=== PATIENT | female | born 1965 | race African-American/Black ===

== ENCOUNTER 2017-11-01 16:57 | Emergency (ER) | payer OTHER ==
--- NOTE | 2017-11-01 17:12 | PDOC ---
Attending Attestation - Resident Resident Name: Hi Mathew - HPI HPI: 11/01/17 18:41 Pt presents to the ED complaining of shortness of breath and diffuse frontal headache, along with runny nose and sore throat that have been present for the last two days. Patient was seen at [facility] for these complaints, treated with nebs and steroids and discharged home, but presents today because she still feels short of breath. States that this feels like her asthma. Extensive past medical history as described in resident note, notable for PE/ DVT and anneurysm. Denies fevers but complains of cough that is occasionally productive of white sputum. - Physicial Exam PE: 11/01/17 18:46 Agree with resident exam. PAteint is alert and in mild respiratory distress. Good air entry b/l with wheezes. Speaking in 3-4 word sentences. No LE tenderness or edema. - Medical Decision Making 11/01/17 18:48 Pt presents to the ED complaining of shortness of breath and wheezing consistent with prior asthma attacks. Symptoms are much more consistent with asthma exacerbation than PE, but given her history, PE remains on the differential, as does ACS. EKG shows no signs of ischemia. Will check labs and treat with nebs and steroids, reassess. Will do CT angio if d dimer is positive.
--- NOTE | 2017-11-01 17:58 | PDOC ---
History of Present Illness <ManuelIlana andrade - Last Filed: 11/01/17 21:35> - History of Present Illness Initial Comments: 11/01/17 18:52 Pt is a 52 y/o lady with an extensive past medical history of Pulmonary embolism , DVT, LLE, COPD, Asthma, CHF, HLD, HTN, Anxiety, DM, Myocardial infarction, Brain Aneurysm, and obstructive sleep apnea. Pt presents this evening to [facility] c/o shortness of breath, lightheadedness, and headache. Pt endorses she was recently discharged from [facility] last night for the same symptoms where she was treated with nebulizer and corticosteroids. Pt states she woke up this am with shortness of breath and lightheaded. Also endorses severe headache 10/10 in severity and sharp in nature. Pt states that her headache is new and has not experienced this type of pain before. Endorses she is on anticoagulant(Xarelto) since her DVT and pulmonary embolism approximately 3 years ago. All-Lisinopril PSurgHx- Hysterectomy, right breast lumpectomy, Arthroscopy Rt Knee Social Hx- Former smoker(1/2 pack/day 20 years, quit), social drinker <Erica Garcia - Last Filed: 11/02/17 00:09> - General Chief Complaint: Shortness of Breath Stated Complaint: CHEST PAIN Time Seen by Provider: 11/01/17 17:07 NIH Stroke Scale - Last Known Well Date/Time & Onset Date Last Known Well: 11/01/17 Time Last Known Well: 17:00 - Initial Evaluation Level of consciousness: Alert Ask patient the month and their age: Answers both correctly Ask patient to open & close eyes; make fist and let go: Obeys both correctly Best gaze (horizontal eye movement): Normal Visual field testing: No visual field loss Facial paresis (Show teeth/raise eyebrows/close eyes tight): Normal symmetrical movement Motor Function: Left Arm: Normal Motor Function: Right Arm: Normal (extends arm 90 (or 45) degrees for 10 seconds without drift Motor Function: Left Leg: Normal (extends leg 30 degrees for 5 seconds without drift) Motor Function: Right Leg: Normal (extends leg 30 degrees for 5 seconds without drift) Limb Ataxia: No ataxia Sensory(Use pinprick test arms,legs,trunk,face/side to side): Normal Best language (Describe picture, name items, read sentences): No Aphasia Dysarthria (read several words): Normal articulation Extinction and Inattention: No abnormality - Total Score NIH Stroke Scale Score: 0 <QuincyErica olivas - Last Filed: 11/02/17 00:09> Past History <Ilana Reyes - Last Filed: 11/01/17 21:35> - Past Medical History Asthma: Yes COPD: Yes Hypercholesterolemia: Yes Seizures: Yes Other medical history: SLEEP APNEA, - Suicide/Smoking/Psychosocial Hx Smoking History: Former smoker Have you smoked in the past 12 months: Yes If you are a former smoker, when did you quit?: 3 MONTHS AGO Information on smoking cessation initiated: No Hx Alcohol Use: No Drug/Substance Use Hx: No <QuincyErica - Last Filed: 11/02/17 00:09> - Past Medical History Allergies/Adverse Reactions: Allergies Allergy/AdvReac Type Severity Reaction Status Date / Time lisinopril Allergy Severe Swelling Verified 11/01/17 17:20 Home Medications: Ambulatory Orders Docusate Sodium [Stool Softener] 300 mg PO DAILY 11/01/17 Escitalopram Oxalate [Lexapro -] 10 mg PO DAILY 11/01/17 Furosemide 40 mg PO BID 11/01/17 Gabapentin 300 mg PO BID 11/01/17 Hydralazine HCl 25 mg PO TID 11/01/17 Hydrochlorothiazide 25 mg PO DAILY 11/01/17 Isosorbide Dinitrate [Isordil -] 10 mg PO TID 11/01/17 Levetiracetam [Levetiracetam ER] 750 mg PO BID 11/01/17 Metoprolol Tartrate 100 mg PO BID 11/01/17 Montelukast Na [Singulair -] 10 mg PO HS 11/01/17 Multivit/Iron/FA/K/Herb No.244 [Alive Women's Energy Mv Tablet] 1 each PO DAILY 11/01/17 Rivaroxaban [Xarelto -] 20 mg PO DAILY 11/01/17 Simvastatin 20 mg PO HS 11/01/17 Tramadol HCl 50 mg PO Q6H PRN 11/01/17 Review of Systems - Review of Systems Able to Perform ROS?: Yes Is the patient limited Telugu proficient: No Respiratory: Yes: Orthopnea, Shortness of Breath, SOB with Exertion, SOB at Rest Cardiac (ROS): Yes: See HPI, Chest Tightness Neurological: Yes: Headache <Erica Garcia - Last Filed: 11/02/17 00:09> *Physical Exam - Vital Signs Last Vital Signs Temp Pulse Resp BP Pulse Ox 98.6 F 78 26 H 142/66 97 11/01/17 17:15 11/01/17 20:56 11/01/17 20:56 11/01/17 20:56 11/01/17 20:56 <Ilana Reyes - Last Filed: 11/01/17 21:35> - Vital Signs Last Vital Signs Temp Pulse Resp BP Pulse Ox 98.6 F 93 H 32 H 191/113 94 L 11/01/17 17:15 11/01/17 17:15 11/01/17 17:15 11/01/17 17:15 11/01/17 17:15 - Physical Exam Comments: 11/01/17 20:43 GEN- AD, AAOx3 HEENT- NC/AT RS- CTA B/L, No Wheezing appreciated CVS- RRR No MRG S1 S2 ABD- NT ND No HSM EXT No CCE <Erica Garcia - Last Filed: 11/02/17 00:09> ED Treatment Course - LABORATORY CBC & Chemistry Diagram: 11/01/17 18:15 11/01/17 18:15 - ADDITIONAL ORDERS Additional order review: Laboratory Results 11/01/17 11/01/17 11/01/17 18:15 18:15 18:13 D-Dimer 233 Sodium 141 Potassium 4.1 Chloride 103 Carbon Dioxide 26 Anion Gap 12 BUN 12 Creatinine 0.8 Creat Clearance w eGFR > 60 Random Glucose 299 H Calcium 9.2 Total Bilirubin 0.7 AST 10 L ALT 22 Alkaline Phosphatase 118 H Creatine Kinase 71 Troponin I < 0.02 Total Protein 7.2 Albumin 3.4 11/01/17 18:15 RBC 5.35 H MCV 79.5 L MCHC 33.0 RDW 16.4 H MPV 9.8 Neutrophils % 72.8 Lymphocytes % 20.0 Monocytes % 6.0 Eosinophils % 0.1 Basophils % 1.1 - Medications Given in the ED: ED Medications Discontinued Medications Generic Name Dose Route Start Last Admin Trade Name Freq PRN Reason Stop Dose Admin Acetaminophen 1,000 mg 11/01/17 18:34 11/01/17 18:53 Ofirmev Injection - IVPB 11/01/17 18:35 1,000 mg ONCE ONE Administration Albuterol/Ipratropium 1 amp 11/01/17 18:06 11/01/17 18:32 Duoneb - NEB 11/01/17 18:07 1 amp ONCE ONE Administration Ketorolac Tromethamine 15 mg 11/01/17 19:56 11/01/17 20:17 Toradol Injection - IM 11/01/17 19:57 15 mg ONCE ONE Administration Methylprednisolone Sodium Succinate 125 mg 11/01/17 18:07 11/01/17 18:33 Solu-Medrol - IVPUSH 11/01/17 18:08 125 mg ONCE ONE Administration <Ilana Reyes - Last Filed: 11/01/17 21:35> - LABORATORY CBC & Chemistry Diagram: 11/01/17 18:15 11/01/17 18:15 - RADIOLOGY Radiology Studies Ordered: 11/01/17 21:12 [id number] CT/HEAD CT WITHOUT CONTRAST Cranial CT without contrast Clinical information given worst headache of life, history of darby aneurysm Multiplanar imaging was performed. Intravenous contrast was not administered. No prior imaging studies are available at this facility for direct comparison. An approximately 0.5 cm moderately hyperdense focus is seen projecting over the subarachnoid space ventral to the basis pontis in a slightly right paramedian position. On the basis of this exam it is uncertain with this focus represents a small subarachnoid blood clot versus focal artifact. Given this possible finding and the provided clinical history CSF analysis is suggested. The remainder of the exam appears unremarkable. Impression: As noted above. Reported By: Ritchie Campbell MD 11/01/172019 ERICA GARCIA Technologist: Godfrey Wood Transcribed Date/Time: 11/01/172019 Motorman/Woman: Ritchie Campbell Printed Date/Time: 11/01/172019 By: BAYRON ARIZA 1 <Erica Garcia - Last Filed: 11/02/17 00:09> Medical Decision Making - Medical Decision Making 11/01/17 21:[address] Allen Abraham, patient's neurosurgeon, awaiting call back. <Ilana Reyes - Last Filed: 11/01/17 21:35> - Medical Decision Making 11/01/17 20:[address] performed, awating official read D-Dimer negative 11/01/17 22:[address] Abraham, recommends pt be transferred to [facility] for possible coiling or clipping of aneurysm. 11/01/17 22:53 Spoke with Neurosurgery at [facility], Dr Holley's service will accept patient. Informed to begin Nicardapine drip and 1,[address] MG Kepp[address] with Dr Elise at [facility], aware of patient and expecting arrival. <Erica Garcia - Last Filed: 11/02/17 00:09> *DC/Admit/Observation/Transfer - Attestations Scribe Attestion: 11/01/17 21:36 Documentation prepared by Ilana Reyes, acting as medical supervisor for Emmy Evans MD. <Ilana Reyes - Last Filed: 11/01/17 21:35> <Erica Garcia - Last Filed: 11/02/17 00:09> Diagnosis at time of Disposition: Cerebral aneurysm, Bronchospasm - Discharge Dispostion Disposition: TRANSFER ACUTE CARE/OTHER HOSP - Referrals Referrals: ON STAFF,NOT [Primary Care Provider] -
[2017-11-01] MEDS ORDERED: ALBUTEROL SO4 2.5/IPRATROPIUM 0.5 INH SOL 3 ML VIAL.NEB. NEB ONE ×2 (18:06→18:25)
[2017-11-01] MEDS ORDERED: methylPREDNISolone NA SUCC 125 MG/2 ML VIAL IVPUSH ONE (18:07)
[2017-11-01 18:19] VITALS: BMI 55.3
[2017-11-01 18:25] LABS: BASO % 1.1 % (0-2.0); EOS % 0.1 % (0-4.5); HEMATOCRIT 42.5 % (32.4-45.2); MCH 26.2 pg (25.7-33.7); MEAN CELL VOLUME 79.5 fl (80-96); MEAN PLT VOLUME 9.8 fl (7.5-11.1); NEUT % 72.8 % (42.8-82.8); PLATELET COUNT 237 K/MM3 (134-434); RBC 5.35 M/mm3 (3.60-5.2); RDW 16.4 % (11.6-15.6); WHITE BLOOD COUNT 8.4 K/mm3 (4.0-10.0)
[2017-11-01] MEDS ORDERED: methylPREDNISolone NA SUCC 125 MG/2 ML VIAL ONE (18:25)
[2017-11-01] MEDS ORDERED: ACETAMINOPHEN 1000 MG/100 ML VIAL (NON FORMULARY) IVPB ONE (18:34)
[2017-11-01] MEDS ORDERED: ACETAMINOPHEN INJECTION 100 ML IVPB ONE (18:46)
[2017-11-01 18:52] LABS: ALBUMIN 3.4 g/dl (3.4-5.0); ANION GAP 12 MMOL/L (8-16); BILIRUBIN,TOTAL 0.7 mg/dL (0.2-1); BLOOD UREA NITROGEN 12 mg/dL (7-18); CALCIUM 9.2 mg/dL (8.5-10.1); CHLORIDE 103 mmol/L (98-107); CO2 26 mmol/L (21-32); CREATININE 0.8 mg/dL (0.55-1.3); GLUCOSE,RANDOM 299 mg/dL (74-106); POTASSIUM 4.1 mmol/L (3.5-5.1); SGOT/AST 10 U/L (15-37); SGPT/ALT 22 U/L (13-61); SODIUM 141 mmol/L (136-145); TOT PROT 7.2 g/dl (6.4-8.2)
[2017-11-01 18:53] LABS: ALK PHOS 118 U/L (45-117)
[2017-11-01] MEDS ORDERED: KETOROLAC TROMETHAMINE 15 MG/ML VIAL IM ONE (19:56)
[2017-11-01] MEDS ORDERED: KETOROLAC TROMETHAMINE 15 MG/ML VIAL ONE (20:13)
[2017-11-01] MEDS ORDERED: METOCLOPRAMIDE HCL INJECTION 10 MG/2 ML VIAL IVPUSH ONE (21:32)
[2017-11-01] MEDS ORDERED: morphine CARPU-JECT 4 MG/1 ML DISP.SYRIN IVPUSH ONE (21:33)
[2017-11-01] MEDS ORDERED: METOCLOPRAMIDE HCL INJECTION 10 MG/2 ML VIAL ONE (22:01)
[2017-11-01] MEDS ORDERED: morphine SULFATE 4 MG/ML VIAL ONE (22:02)
[2017-11-01] MEDS ORDERED: levETIRAcetam 500 MG/5 ML INJECTION VIAL IVPB ONE ×2 (22:22→22:55)
[2017-11-01] MEDS ORDERED: NICARDIPINE 25 MG in DEXTROSE 5%-WATER - 240 ML IVPB SCH (22:30)
--- NOTE | 2017-11-01 22:32 | PDOC ---
*Physical Exam - Vital Signs Last Vital Signs Temp Pulse Resp BP Pulse Ox 98.6 F 78 26 H 142/66 97 11/01/17 17:15 11/01/17 20:56 11/01/17 20:56 11/01/17 20:56 11/01/17 20:56 - Physical Exam General Appearance: Yes: Nourished HEENT: positive: MARCI Neck: positive: Trachea midline Respiratory/Chest: positive: Lungs Clear, Normal Breath Sounds Cardiovascular: positive: Regular Rhythm, Regular Rate, S1, S2 Gastrointestinal/Abdominal: positive: Normal Bowel Sounds, Soft. negative: Tender Musculoskeletal: positive: Normal Inspection Extremity: positive: Normal Capillary Refill Neurologic: positive: chief engineering division II-XII NML intact, Fully Oriented, Alert, Normal Mood/ Affect, Motor Strength 06/19 ED Treatment Course - LABORATORY CBC & Chemistry Diagram: 11/01/17 18:15 11/01/17 18:15 - ADDITIONAL ORDERS Additional order review: Laboratory Results 11/01/17 11/01/17 11/01/17 18:15 18:15 18:13 D-Dimer 233 Sodium 141 Potassium 4.1 Chloride 103 Carbon Dioxide 26 Anion Gap 12 BUN 12 Creatinine 0.8 Creat Clearance w eGFR > 60 Random Glucose 299 H Calcium 9.2 Total Bilirubin 0.7 AST 10 L ALT 22 Alkaline Phosphatase 118 H Creatine Kinase 71 Troponin I < 0.02 Total Protein 7.2 Albumin 3.4 11/01/17 18:15 RBC 5.35 H MCV 79.5 L MCHC 33.0 RDW 16.4 H MPV 9.8 Neutrophils % 72.8 Lymphocytes % 20.0 Monocytes % 6.0 Eosinophils % 0.1 Basophils % 1.1 - Medications Given in the ED: ED Medications Discontinued Medications Generic Name Dose Route Start Last Admin Trade Name Freq PRN Reason Stop Dose Admin Acetaminophen 1,000 mg 11/01/17 18:34 11/01/17 18:53 Ofirmev Injection - IVPB 11/01/17 18:35 1,000 mg ONCE ONE Administration Albuterol/Ipratropium 1 amp 11/01/17 18:06 11/01/17 18:32 Duoneb - NEB 11/01/17 18:07 1 amp ONCE ONE Administration Ketorolac Tromethamine 15 mg 11/01/17 19:56 11/01/17 20:17 Toradol Injection - IM 11/01/17 19:57 15 mg ONCE ONE Administration Methylprednisolone Sodium Succinate 125 mg 11/01/17 18:07 11/01/17 18:33 Solu-Medrol - IVPUSH 11/01/17 18:08 125 mg ONCE ONE Administration Metoclopramide HCl 10 mg 11/01/17 21:32 11/01/17 22:11 Reglan Injection - IVPUSH 11/01/17 21:33 10 mg ONCE ONE Administration Morphine Sulfate 4 mg 11/01/17 21:33 11/01/17 22:11 Morphine Injection - IVPUSH 11/01/17 21:34 4 mg ONCE ONE Administration Medical Decision Making - Medical Decision Making 11/01/17 22:28 assumed care of pt from DR Contreras at 7 pm. pt with h/o obesity prior PE, HTN copd/ asthma, here with sob. was seen and discharged from another hospital last night, pt also c/o worst headache of her life. on assuming her care. labs and ct head pending. ct head resulted with possible thrombus in the anuerysm. pt d dimer normal. resp status improved with nebs. d/w forward air controller/air officer jocelinesurgermaykel bingham, who reviewed the ct head, concerns for possible rupture, recommend transfer to [facility]. d/w transfer center and stacy forward air controller/air officer there, Dr. Holley ( who is familiar with patient ) who will take pt. ct a ordered prior to d/w otilia on hold as may need to perform contrast study there. pt will go to ED accepted by DR Stuart ed physician at [facility]. *DC/Admit/Observation/Transfer Diagnosis at time of Disposition: Cerebral aneurysm, Bronchospasm - Discharge Dispostion Disposition: TRANSFER ACUTE CARE/OTHER HOSP - Referrals Referrals: ON STAFF,NOT [Primary Care Provider] - - Patient Instructions - Post Discharge Activity
[2017-11-01] MEDS ORDERED: niCARdipine HCL 25 MG/10 ML AMPUL IVPB ONE (22:54)
[2017-11-01 23:26] VITALS: BP 164/73; PULSE 84; TEMP 98.9
--- NOTE | 2017-11-02 16:44 | EKG ---
Test Reason : Blood Pressure : / mmHG Vent. Rate : 087 BPM Atrial Rate : 087 BPM P-R Int : 180 ms QRS Dur : 084 ms QT Int : 396 ms P-R-T Axes : 040 -32 109 degrees QTc Int : 476 ms NORMAL SINUS RHYTHM LEFT AXIS DEVIATION LEFT VENTRICULAR HYPERTROPHY WITH REPOLARIZATION ABNORMALITY ABNORMAL ECG NO PREVIOUS ECGS AVAILABLE Confirmed by Bakari Art ([id number]) on 11/02/2017 4:43:47 PM Referred By: Confirmed By:Bakari Art
== END 2017-11-01 23:39 | disposition short-term general hospital (02) ==
LOC: JER 16:57
PROC: 3E0F7GC Introduction of Other Therapeutic Substance into Respiratory Tract, Via Natural or Artificial Opening (ICD-10-PCS; principal; 2017-11-01)
PROC: 3E0233Z Introduction of Anti-inflammatory into Muscle, Percutaneous Approach (ICD-10-PCS; 2017-11-01)
PROC: 3E033GC Introduction of Other Therapeutic Substance into Peripheral Vein, Percutaneous Approach (ICD-10-PCS; 2017-11-01)
PROC: 3E033NZ Introduction of Analgesics, Hypnotics, Sedatives into Peripheral Vein, Percutaneous Approach (ICD-10-PCS; 2017-11-01)
DX: I67.1 Cerebral aneurysm, nonruptured (principal); J98.01 Acute bronchospasm; J45.909 Unspecified asthma, uncomplicated; E78.00 Pure hypercholesterolemia, unspecified; R56.9 Unspecified convulsions; G47.30 Sleep apnea, unspecified
CPT/HCPCS: 36415; 70450-TC; 71045-TC-FY; 80053; 82550; 84484; 85025; 85379; 93005; 93010; 94640; 96372; 96374; 96375; 99285-25; J0131; J7620

== ENCOUNTER 2017-12-14 10:12 | Day surgery (SDC) | payer OTHER ==
[2017-12-14 11:32] VITALS: BMI 54.0
[2017-12-14] MEDS ORDERED: TETRACAINE/BENZOCAINE/BUTAMBEN 20 GM SPR TP ONE (12:15)
[2017-12-14] MEDS ORDERED: MIDAZOLAM HCL 2 MG/2 ML SINGLE DOSE VIAL ONE (12:16)
[2017-12-14] MEDS ORDERED: LIDOCAINE VISCOUS 2% ORAL/TOP 20 ML UNIT-DOSE CUP ONE (12:18)
[2017-12-14 13:01] VITALS: TEMP 98
[2017-12-14 14:36] VITALS: BP 150/84; PULSE 65
--- NOTE | 2017-12-15 15:57 | PATH ---
Surgical Pathology Report Patient [facility]: [facility]. Rec. #: [id number] /Age/Gender: 1965 (Age: 52) / F Account: [id number] Location: [facility]-ENDOSCOPY Taken: 12/14/2017 Received: 12/14/2017 Reported: 12/15/2017 Physicians: Deandre Staples M.D. Specimen(s) Received BX ANTRUM Clinical History Acid reflux Postoperative diagnosis: Normal EGD Final Diagnosis STOMACH, ANTRUM, BIOPSY: GASTRIC ANTRAL MUCOSA WITH MILD CHRONIC GASTRITIS. IMMUNOHISTOCHEMICAL STAIN FOR H. PYLORI IS NEGATIVE. Electronically Signed Yasmin Johnson M.D. Gross Description Received in formalin, labeled "biopsy antrum" are 2 [place], irregular portions of soft tissue measuring 0.3 and 0.6 cm. in greatest dimension. The specimens are submitted in toto in one cassette. /12/14/2017 saudi12/14/2017
== END 2017-12-14 14:48 | disposition home or self-care (01) ==
LOC: JASU-SURG 10:12 → JASU-ENDO 10:12
PROVIDERS: ATTEND Internal Medicine Gastroenterology
PROC: 0DB68ZX Excision of Stomach, Via Natural or Artificial Opening Endoscopic, Diagnostic (ICD-10-PCS; principal; 2017-12-14 11:15)
DX: Z01.818 Encounter for other preprocedural examination (principal); E66.01 Morbid (severe) obesity due to excess calories; I10 Essential (primary) hypertension; G47.30 Sleep apnea, unspecified; J44.9 Chronic obstructive pulmonary disease, unspecified
CPT/HCPCS: 82962; 88305-TC; 88342-TC

== ENCOUNTER 2020-09-13 12:25 | Inpatient (IN) | payer OTHER ==
[2020-09-13 15:06] LABS: VENOUS BASE EXCESS 9.1 mmol/L (-2-2); VENOUS PCO2 59.4 mmHg (38-52); VENOUS PH 7.386 (7.310-7.410)
[2020-09-13 15:07] LABS: BASO % 0.2 % (0-2.0); EOS % 0.1 % (0-4.5); HEMATOCRIT 14.6 % (32.4-45.2); LYMPH % 14.5 % (8-40); MCH 25.6 pg (25.7-33.7); MCHC 32.5 g/dl (32.0-36.0); MEAN CELL VOLUME 78.9 fl (80-96); MEAN PLT VOLUME 7.5 fl (7.5-11.1); MONO % 11.4 % (3.8-10.2); NEUT % 73.8 % (42.8-82.8); PLATELET COUNT 320 10^3/uL (134-434); RBC 1.85 M/mm3 (3.60-5.2); RDW 17.6 % (11.6-15.6); WHITE BLOOD COUNT 14.8 K/mm3 (4.0-10.0)
[2020-09-13 15:10] LABS: HEMOGLOBIN 4.8 GM/dL (10.7-15.3)
[2020-09-13 15:16] LABS: CHLORIDE 97 mmol/L (98-107); SODIUM 139 mmol/L (136-145)
[2020-09-13 15:19] LABS: ALBUMIN 3.1 g/dl (3.4-5.0); BLOOD UREA NITROGEN 29.3 mg/dL (7-18); CALCIUM 8.1 mg/dL (8.5-10.1); GLUCOSE,RANDOM 294 mg/dL (74-106)
[2020-09-13 15:20] LABS: CO2 33 mmol/L (21-32)
[2020-09-13 15:22] LABS: CREATININE 1.2 mg/dL (0.55-1.3); SGOT/AST 7 U/L (15-37); SGPT/ALT 16 U/L (13-61)
[2020-09-13 15:24] LABS: BILIRUBIN,TOTAL 0.4 mg/dL (0.2-1); TOT PROT 6.1 g/dl (6.4-8.2)
[2020-09-13 15:25] LABS: ALK PHOS 90 U/L (45-117)
[2020-09-13 15:44] LABS: ANION GAP 8 MMOL/L (8-16)
[2020-09-13] MEDS ORDERED: PANTOPRAZOLE SODIUM 80 MG in SODIUM CHLORIDE 100 ML IVPB ONE (16:08)
[2020-09-13] MEDS ORDERED: KCL 10 MEQ IVPB 10 MEQ/100 ML INFUS.BAG IVPB ONE ×2 (16:19→17:30)
[2020-09-13] MEDS ORDERED: PANTOPRAZOLE SODIUM 80 MG/200 ML BAG IVPB ONE (16:19)
[2020-09-13] MEDS: KCL 10 MEQ IVPB 10 MEQ/100 ML INFUS.BAG IVPB SCH ×3 (16:38→18:59)
[2020-09-13] MEDS ORDERED: POTASSIUM CHLORIDE TABS 20 MEQ TABLET.ER (FP) PO ONE ×2 (16:40→18:37)
[2020-09-13] MEDS ORDERED: PANTOPRAZOLE SODIUM 80 MG in SODIUM CHLORIDE 100 ML IVPB SCH (18:15)
[2020-09-13] MEDS ORDERED: PANTOPRAZOLE SODIUM 40 MG VIAL ONE (18:37)
[2020-09-13] MEDS: PANTOPRAZOLE SODIUM 160 MG in SODIUM CHLORIDE 290 ML IVPB SCH (18:59)
[2020-09-13] MEDS ORDERED: MAGNESIUM SULF 50% (8.12 MEQ/2 ML-1 GM VIAL) IVPB ONE (19:21)
[2020-09-13] MEDS ORDERED: MAGNESIUM SULF 50% (8.12 MEQ/2 ML-1 GM VIAL) ONE (19:43)
[2020-09-13] MEDS ORDERED: ACETAMINOPHEN 1000 MG/100 ML VIAL (NON FORMULARY) IVPB ONE (22:17)
[2020-09-13] MEDS ORDERED: ACETAMINOPHEN INJECTION 100 ML IVPB ONE (22:55)
[2020-09-14 09:28] LABS: IRON SERUM 53 ug/dL (50-175); TOTAL IRON BINDING CAPACITY 324 ug/dL (250-450)
[2020-09-14] MEDS: POTASSIUM CHLORIDE TABS 20 MEQ TABLET.ER (FP) PO SCH (11:53)
[2020-09-14] MEDS: ALBUTEROL SO4 2.5/IPRATROPIUM 0.5 INH SOL 3 ML VIAL.NEB. NEB SCH ×2 (13:23→19:49)
[2020-09-14 13:36] LABS: BASO % 0.5 % (0-2.0); EOS % 1.3 % (0-4.5); HEMOGLOBIN 7.4 GM/dL (10.7-15.3); LYMPH % 13.6 % (8-40); MCH 26.9 pg (25.7-33.7); MCHC 33.7 g/dl (32.0-36.0); MEAN CELL VOLUME 79.8 fl (80-96); MEAN PLT VOLUME 8.4 fl (7.5-11.1); MONO % 5.5 % (3.8-10.2); NEUT % 79.1 % (42.8-82.8); PLATELET COUNT 296 10^3/uL (134-434); RBC 2.76 M/mm3 (3.60-5.2); RDW 16.3 % (11.6-15.6); WHITE BLOOD COUNT 13.7 K/mm3 (4.0-10.0)
[2020-09-14 13:39] LABS: CHLORIDE 102 mmol/L (98-107); SODIUM 144 mmol/L (136-145)
[2020-09-14 13:41] LABS: CALCIUM 7.9 mg/dL (8.5-10.1)
[2020-09-14 13:42] LABS: ALBUMIN 3.1 g/dl (3.4-5.0); BLOOD UREA NITROGEN 19.9 mg/dL (7-18); CO2 36 mmol/L (21-32); GLUCOSE,RANDOM 243 mg/dL (74-106); MAGNESIUM 2.1 mg/dL (1.8-2.4)
[2020-09-14 13:45] LABS: CREATININE 0.9 mg/dL (0.55-1.3); SGOT/AST 10 U/L (15-37); SGPT/ALT 16 U/L (13-61)
[2020-09-14 13:46] LABS: BILIRUBIN,TOTAL 0.5 mg/dL (0.2-1)
[2020-09-14 13:48] LABS: ALK PHOS 95 U/L (45-117)
[2020-09-14 14:09] LABS: ANION GAP 6 MMOL/L (8-16)
[2020-09-14] MEDS ORDERED: POTASSIUM CHLORIDE TABS 20 MEQ TABLET.ER (FP) PO ONE (15:15)
[2020-09-14] MEDS: FLUTICASONE/SALMETEROL 100 MCG/50 MCG DISKUS IH SCH ×2 (15:18→21:38)
[2020-09-14] MEDS: PANTOPRAZOLE SODIUM 160 MG in SODIUM CHLORIDE 290 ML IVPB SCH (15:18)
[2020-09-14] MEDS: KCL 10 MEQ IVPB 10 MEQ/100 ML INFUS.BAG IVPB SCH ×2 (15:22→16:18)
[2020-09-14] MEDS ORDERED: PT OWN MED DRAWER 7, Y5N ONE (18:30)
[2020-09-14] MEDS: ACETAMINOPHEN 1000 MG/100 ML VIAL (NON FORMULARY) IVPB PRN (19:46)
[2020-09-14] MEDS: MONTELUKAST NA 10 MG TABLET PO SCH (21:35)
[2020-09-14] MEDS: POLYETHYLENE GLYCOL (HEALTHYLAX) 3350 17 GM PACKET PO SCH (21:36)
[2020-09-15] MEDS: ACETAMINOPHEN 1000 MG/100 ML VIAL (NON FORMULARY) IVPB PRN ×3 (01:58→21:45)
[2020-09-15] MEDS: POLYETHYLENE GLYCOL (HEALTHYLAX) 3350 17 GM PACKET PO SCH (05:00)
[2020-09-15 07:47] LABS: BASO % 0.4 % (0-2.0); EOS % 2.1 % (0-4.5); HEMATOCRIT 20.1 % (32.4-45.2); LYMPH % 15.2 % (8-40); MCH 26.7 pg (25.7-33.7); MCHC 33.6 g/dl (32.0-36.0); MEAN CELL VOLUME 79.4 fl (80-96); MEAN PLT VOLUME 8.3 fl (7.5-11.1); MONO % 6.5 % (3.8-10.2); NEUT % 75.8 % (42.8-82.8); PLATELET COUNT 275 10^3/uL (134-434); RBC 2.53 M/mm3 (3.60-5.2); RETICULOCYTES 5.76 % (0.5-1.5); WHITE BLOOD COUNT 12.7 K/mm3 (4.0-10.0)
[2020-09-15] MEDS: ALBUTEROL SO4 2.5/IPRATROPIUM 0.5 INH SOL 3 ML VIAL.NEB. NEB SCH ×3 (07:50→20:55)
[2020-09-15 07:51] LABS: HEMOGLOBIN 6.7 GM/dL (10.7-15.3)
[2020-09-15 07:57] LABS: BLOOD UREA NITROGEN 11.9 mg/dL (7-18); CALCIUM 7.8 mg/dL (8.5-10.1)
[2020-09-15 07:59] LABS: INR 1.24 (0.83-1.09); PROTHROMBIN TIME (PATIENT) 14.9 SEC (9.7-13.0)
[2020-09-15 08:00] LABS: CREATININE 0.8 mg/dL (0.55-1.3)
[2020-09-15 08:31] LABS: MAGNESIUM 2.1 mg/dL (1.8-2.4)
[2020-09-15] MEDS: KCL 10 MEQ IVPB 10 MEQ/100 ML INFUS.BAG IVPB SCH ×2 (09:53→10:48)
[2020-09-15] MEDS: FLUTICASONE/SALMETEROL 100 MCG/50 MCG DISKUS IH SCH ×2 (09:53→21:03)
[2020-09-15] MEDS: PANTOPRAZOLE SODIUM 160 MG in SODIUM CHLORIDE 290 ML IVPB SCH (09:54)
[2020-09-15] MEDS: POTASSIUM CHLORIDE TABS 20 MEQ TABLET.ER (FP) PO SCH (09:54)
[2020-09-15] MEDS ORDERED: MAGNESIUM HYDROX 2400MG/30ML ORAL SUSPENSION 30 ML CUP PO ONE (11:45)
[2020-09-15] MEDS ORDERED: INSULIN (NOVOLOG) ASPART 100 UNITS/ML 10ML VIAL SQ ONE (19:48)
[2020-09-15] MEDS: MONTELUKAST NA 10 MG TABLET PO SCH (21:02)
[2020-09-16] MEDS ORDERED: PT OWN MED DRAWER 7, Y5N ONE ×2 (05:16→21:39)
[2020-09-16] MEDS: ACETAMINOPHEN 1000 MG/100 ML VIAL (NON FORMULARY) IVPB PRN ×2 (05:42→21:15)
[2020-09-16] MEDS: PANTOPRAZOLE SODIUM 160 MG in SODIUM CHLORIDE 290 ML IVPB SCH (05:48)
[2020-09-16] MEDS: ALBUTEROL SO4 2.5/IPRATROPIUM 0.5 INH SOL 3 ML VIAL.NEB. NEB SCH ×3 (08:25→20:40)
[2020-09-16] MEDS: POLYETHYLENE GLYCOL 3350 119 GM BTL PO SCH (10:45)
[2020-09-16] MEDS: POTASSIUM CHLORIDE TABS 20 MEQ TABLET.ER (FP) PO SCH (10:45)
[2020-09-16] MEDS: FLUTICASONE/SALMETEROL 100 MCG/50 MCG DISKUS IH SCH ×2 (10:48→21:44)
[2020-09-16 11:15] LABS: BASO % 0.4 % (0-2.0); EOS % 3.2 % (0-4.5); HEMATOCRIT 25.3 % (32.4-45.2); HEMOGLOBIN 8.5 GM/dL (10.7-15.3); MCH 27.1 pg (25.7-33.7); MCHC 33.7 g/dl (32.0-36.0); MEAN CELL VOLUME 80.2 fl (80-96); MEAN PLT VOLUME 7.8 fl (7.5-11.1); MONO % 5.1 % (3.8-10.2); NEUT % 82.3 % (42.8-82.8); PLATELET COUNT 280 10^3/uL (134-434); RBC 3.16 M/mm3 (3.60-5.2); RDW 16.5 % (11.6-15.6); WHITE BLOOD COUNT 13.7 K/mm3 (4.0-10.0)
[2020-09-16 11:39] LABS: ALBUMIN 2.9 g/dl (3.4-5.0); MAGNESIUM 2.2 mg/dL (1.8-2.4)
[2020-09-16 11:42] LABS: CREATININE 0.8 mg/dL (0.55-1.3)
[2020-09-16 11:44] LABS: BILIRUBIN,TOTAL 1.6 mg/dL (0.2-1); TOT PROT 5.8 g/dl (6.4-8.2)
[2020-09-16] MEDS ORDERED: IRON SUCROSE INJECTION 200 MG in SODIUM CHLORIDE 90 ML IVPB ONE (15:30)
[2020-09-16] MEDS ORDERED: BISACODYL 5 MG TABLET.DR (FP) PO ONE (16:00)
[2020-09-16] MEDS ORDERED: PEG 3350/NA SULF BICARB CL/KCL 4000 ML SOLN.RECON PO ONE (17:00)
[2020-09-16 20:10] LABS: TRANSGLUTAMINASE IGA < 2 U/mL (0-3); TRANSGLUTAMINASE IGG < 2 U/mL (0-5)
[2020-09-16] MEDS: MONTELUKAST NA 10 MG TABLET PO SCH (21:37)
[2020-09-16] MEDS: VALPROATE SODIUM INJECTION 500 MG in SODIUM CHLORIDE 100 ML IVPB SCH ×2 (21:44→23:29)
[2020-09-16] MEDS ORDERED: VALPROATE SODIUM 500 MG/5 ML VIAL IVPB SCH (22:00)
[2020-09-16] MEDS ORDERED: DIVALPROEX SODIUM 500 MG TABLET E.C. PO ONE (23:17)
[2020-09-17] MEDS ORDERED: MORPHINE SULFATE 2 MG/ML VIAL IM ONE (03:27)
[2020-09-17] MEDS: ALBUTEROL SO4 2.5/IPRATROPIUM 0.5 INH SOL 3 ML VIAL.NEB. NEB SCH ×3 (07:27→20:10)
[2020-09-17 08:48] LABS: EPI CELLS >36 /uL (0-25.1); HYALINE CASTS 14 /uL (0-3.1); PH,URINE 6.5 (5.0-8.0); URINE APPEARANCE CLOUDY; URINE BACTERIA >9,000 /uL (0-1359); URINE BILIRUBIN NEGATIVE (NEGATIVE); URINE COLOR DK YELLOW; URINE GLUCOSE (UA) TRACE (NEGATIVE); URINE KETONE 1+ (NEGATIVE); URINE LEUK ESTERASE TRACE (NEGATIVE); URINE NITRITE NEGATIVE (NEGATIVE); URINE PROTEIN 3+ (NEGATIVE); URINE RBC 68 /uL (0-23.9); URINE WBC 52 /uL (0-25.8)
[2020-09-17] MEDS: FLUTICASONE/SALMETEROL 100 MCG/50 MCG DISKUS IH SCH ×2 (10:19→21:33)
[2020-09-17] MEDS: VALPROATE SODIUM INJECTION 500 MG in SODIUM CHLORIDE 100 ML IVPB SCH (10:21)
[2020-09-17] MEDS: POTASSIUM CHLORIDE TABS 20 MEQ TABLET.ER (FP) PO SCH ×2 (10:22→17:05)
[2020-09-17] MEDS: POLYETHYLENE GLYCOL 3350 119 GM BTL PO SCH (10:22)
[2020-09-17] MEDS ORDERED: PT OWN MED DRAWER 7, Y5N ONE ×2 (14:52→21:22)
[2020-09-17 15:26] LABS: BASO % 0.3 % (0-2.0); EOS % 4.7 % (0-4.5); HEMATOCRIT 25.5 % (32.4-45.2); HEMOGLOBIN 8.5 GM/dL (10.7-15.3); LYMPH % 16.2 % (8-40); MCH 26.5 pg (25.7-33.7); MCHC 33.5 g/dl (32.0-36.0); MEAN CELL VOLUME 79.1 fl (80-96); MEAN PLT VOLUME 7.5 fl (7.5-11.1); MONO % 6.3 % (3.8-10.2); NEUT % 72.5 % (42.8-82.8); PLATELET COUNT 307 10^3/uL (134-434); RBC 3.22 M/mm3 (3.60-5.2); RDW 17.1 % (11.6-15.6); WHITE BLOOD COUNT 10.7 K/mm3 (4.0-10.0)
[2020-09-17] MEDS: DIVALPROEX SODIUM 500 MG TABLET E.C. PO SCH ×2 (15:27→21:30)
[2020-09-17 15:44] LABS: ALBUMIN 2.9 g/dl (3.4-5.0); BLOOD UREA NITROGEN 4.6 mg/dL (7-18); CALCIUM 7.9 mg/dL (8.5-10.1)
[2020-09-17 15:47] LABS: CREATININE 0.8 mg/dL (0.55-1.3)
[2020-09-17 15:49] LABS: BILIRUBIN,TOTAL 1.4 mg/dL (0.2-1); TOT PROT 5.9 g/dl (6.4-8.2)
[2020-09-17] MEDS: MONTELUKAST NA 10 MG TABLET PO SCH (21:30)
[2020-09-17] MEDS ORDERED: MAGNESIUM CITRATE 300 ML BOTTLE PO ONE (22:00)
[2020-09-18] MEDS: ALBUTEROL SO4 2.5/IPRATROPIUM 0.5 INH SOL 3 ML VIAL.NEB. NEB SCH ×3 (07:57→22:50)
[2020-09-18] MEDS ORDERED: PT OWN MED DRAWER 7, Y5N ONE ×3 (09:59→21:40)
[2020-09-18] MEDS ORDERED: IRON SUCROSE INJECTION 200 MG in SODIUM CHLORIDE 90 ML IVPB ONE (10:15)
[2020-09-18] MEDS: POTASSIUM CHLORIDE TABS 20 MEQ TABLET.ER (FP) PO SCH (11:11)
[2020-09-18] MEDS: POLYETHYLENE GLYCOL 3350 119 GM BTL PO SCH (11:12)
[2020-09-18] MEDS: DIVALPROEX SODIUM 500 MG TABLET E.C. PO SCH ×2 (11:12→21:54)
[2020-09-18] MEDS: FLUTICASONE/SALMETEROL 100 MCG/50 MCG DISKUS IH SCH ×2 (11:12→21:54)
[2020-09-18] MEDS ORDERED: MAGNESIUM CITRATE 300 ML BOTTLE PO ONE (18:00)
[2020-09-18] MEDS: MONTELUKAST NA 10 MG TABLET PO SCH (21:54)
[2020-09-19 07:59] LABS: BASO % 0.5 % (0-2.0); EOS % 4.3 % (0-4.5); HEMATOCRIT 25.4 % (32.4-45.2); HEMOGLOBIN 8.5 GM/dL (10.7-15.3); LYMPH % 19.6 % (8-40); MCH 26.8 pg (25.7-33.7); MCHC 33.5 g/dl (32.0-36.0); MEAN PLT VOLUME 7.5 fl (7.5-11.1); MONO % 6.4 % (3.8-10.2); NEUT % 69.2 % (42.8-82.8); PLATELET COUNT 336 10^3/uL (134-434); RBC 3.18 M/mm3 (3.60-5.2); RDW 17.8 % (11.6-15.6)
[2020-09-19] MEDS: ALBUTEROL SO4 2.5/IPRATROPIUM 0.5 INH SOL 3 ML VIAL.NEB. NEB SCH (08:00)
[2020-09-19 08:15] LABS: CHLORIDE 103 mmol/L (98-107); SODIUM 142 mmol/L (136-145)
[2020-09-19 08:21] LABS: INR 1.13 (0.83-1.09); PROTHROMBIN TIME (PATIENT) 13.8 SEC (9.7-13.0)
[2020-09-19 08:23] LABS: CALCIUM 8.2 mg/dL (8.5-10.1)
[2020-09-19 08:24] LABS: ANION GAP 7 MMOL/L (8-16); BLOOD UREA NITROGEN 3.4 mg/dL (7-18); CO2 32 mmol/L (21-32); GLUCOSE,RANDOM 211 mg/dL (74-106)
[2020-09-19 08:27] LABS: CREATININE 0.6 mg/dL (0.55-1.3)
[2020-09-19] MEDS ORDERED: PT OWN MED DRAWER 7, Y5N ONE ×2 (10:02→20:56)
[2020-09-19] MEDS: POTASSIUM CHLORIDE TABS 20 MEQ TABLET.ER (FP) PO SCH (10:35)
[2020-09-19] MEDS: DIVALPROEX SODIUM 500 MG TABLET E.C. PO SCH ×2 (10:35→22:39)
[2020-09-19] MEDS: POLYETHYLENE GLYCOL 3350 119 GM BTL PO SCH (10:36)
[2020-09-19] MEDS: FLUTICASONE/SALMETEROL 100 MCG/50 MCG DISKUS IH SCH ×2 (10:36→22:38)
[2020-09-19] MEDS ORDERED: TRIPLE LUMEN FLUSH 4 ML ML IVPUSH PRN (14:08)
[2020-09-19] MEDS ORDERED: KETAMINE HCL 200 MG/20 ML VIAL ONE (15:14)
[2020-09-19] MEDS ORDERED: MAGNESIUM CITRATE 300 ML BOTTLE PO ONE (18:00)
[2020-09-19] MEDS: amLODIPine BESYLATE 5 MG TABLET (FP) PO SCH (18:10)
[2020-09-19 20:24] LABS: BASO % 0.4 % (0-2.0); EOS % 4.3 % (0-4.5); HEMATOCRIT 24.7 % (32.4-45.2); HEMOGLOBIN 8.4 GM/dL (10.7-15.3); LYMPH % 19.8 % (8-40); MCH 26.8 pg (25.7-33.7); MCHC 33.9 g/dl (32.0-36.0); MEAN PLT VOLUME 7.1 fl (7.5-11.1); MONO % 9.4 % (3.8-10.2); NEUT % 66.1 % (42.8-82.8); PLATELET COUNT 326 10^3/uL (134-434); RBC 3.13 M/mm3 (3.60-5.2); RDW 17.7 % (11.6-15.6); WHITE BLOOD COUNT 7.7 K/mm3 (4.0-10.0)
[2020-09-19] MEDS: MONTELUKAST NA 10 MG TABLET PO SCH (22:41)
[2020-09-19 23:34] VITALS: BMI 60.0
[2020-09-20] MEDS ORDERED: ACETAMINOPHEN 1000 MG/100 ML VIAL (NON FORMULARY) IVPB ONE (00:23)
[2020-09-20] MEDS ORDERED: ACETAMINOPHEN 325 MG TABLET (FP) PO ONE (04:44)
[2020-09-20] MEDS ORDERED: PT OWN MED DRAWER 7, Y5N ONE ×2 (09:27→21:53)
[2020-09-20] MEDS: amLODIPine BESYLATE 5 MG TABLET (FP) PO SCH (09:40)
[2020-09-20] MEDS: DIVALPROEX SODIUM 500 MG TABLET E.C. PO SCH ×2 (09:40→22:37)
[2020-09-20] MEDS: POTASSIUM CHLORIDE TABS 20 MEQ TABLET.ER (FP) PO SCH (09:40)
[2020-09-20] MEDS: FLUTICASONE/SALMETEROL 100 MCG/50 MCG DISKUS IH SCH ×2 (09:43→22:37)
[2020-09-20] MEDS ORDERED: IRON SUCROSE INJECTION 200 MG in SODIUM CHLORIDE 90 ML IVPB ONE (10:05)
[2020-09-20] MEDS: CEPHALEXIN MONOHYDRATE 500 MG CAPSULE (UD) PO SCH ×2 (12:45→22:39)
[2020-09-20] MEDS: HEPARIN NA (PORCINE) 5,000 UNITS/ML 1ML VIAL SQ SCH ×2 (13:20→22:39)
[2020-09-20] MEDS: POLYETHYLENE GLYCOL (HEALTHYLAX) 3350 17 GM PACKET PO SCH (13:20)
[2020-09-20] MEDS: POLYETHYLENE GLYCOL 3350 119 GM BTL PO SCH (13:31)
[2020-09-20 18:52] LABS: EPI CELLS >36 /uL (0-25.1); HYALINE CASTS 3 /uL (0-3.1); PH,URINE 6.5 (5.0-8.0); URINE APPEARANCE CLEAR; URINE BACTERIA 2038 /uL (0-1359); URINE BILIRUBIN NEGATIVE (NEGATIVE); URINE COLOR DK YELLOW; URINE GLUCOSE (UA) NEGATIVE (NEGATIVE); URINE KETONE 1+ (NEGATIVE); URINE LEUK ESTERASE NEGATIVE (NEGATIVE); URINE NITRITE NEGATIVE (NEGATIVE); URINE PROTEIN 1+ (NEGATIVE); URINE RBC 60 /uL (0-23.9); URINE UROBILINOGEN 0.2 mg/dL (0.2-1.0); URINE WBC 20 /uL (0-25.8)
[2020-09-20] MEDS: MONTELUKAST NA 10 MG TABLET PO SCH (22:39)
[2020-09-21] MEDS: HEPARIN NA (PORCINE) 5,000 UNITS/ML 1ML VIAL SQ SCH ×3 (06:53→22:57)
[2020-09-21] MEDS: DIVALPROEX SODIUM 500 MG TABLET E.C. PO SCH ×2 (11:21→22:59)
[2020-09-21] MEDS: amLODIPine BESYLATE 5 MG TABLET (FP) PO SCH (11:22)
[2020-09-21] MEDS: CEPHALEXIN MONOHYDRATE 500 MG CAPSULE (UD) PO SCH ×2 (11:22→22:59)
[2020-09-21] MEDS: POTASSIUM CHLORIDE TABS 20 MEQ TABLET.ER (FP) PO SCH (11:22)
[2020-09-21] MEDS: POLYETHYLENE GLYCOL (HEALTHYLAX) 3350 17 GM PACKET PO SCH (11:22)
[2020-09-21] MEDS: FLUTICASONE/SALMETEROL 100 MCG/50 MCG DISKUS IH SCH ×2 (11:26→22:59)
[2020-09-21] MEDS ORDERED: PT OWN MED DRAWER 7, Y5N ONE (21:10)
[2020-09-21] MEDS: MONTELUKAST NA 10 MG TABLET PO SCH (23:00)
[2020-09-22] MEDS: HEPARIN NA (PORCINE) 5,000 UNITS/ML 1ML VIAL SQ SCH ×3 (06:39→21:16)
[2020-09-22] MEDS ORDERED: PEG 3350/NA SULF BICARB CL/KCL 4000 ML SOLN.RECON PO ONE (09:00)
[2020-09-22] MEDS: CEPHALEXIN MONOHYDRATE 500 MG CAPSULE (UD) PO SCH ×2 (09:12→21:15)
[2020-09-22] MEDS: POLYETHYLENE GLYCOL (HEALTHYLAX) 3350 17 GM PACKET PO SCH (09:12)
[2020-09-22] MEDS: FLUTICASONE/SALMETEROL 100 MCG/50 MCG DISKUS IH SCH ×2 (09:12→21:14)
[2020-09-22] MEDS: POTASSIUM CHLORIDE TABS 20 MEQ TABLET.ER (FP) PO SCH (09:12)
[2020-09-22] MEDS: DIVALPROEX SODIUM 500 MG TABLET E.C. PO SCH ×2 (09:12→21:15)
[2020-09-22] MEDS: amLODIPine BESYLATE 5 MG TABLET (FP) PO SCH (09:13)
[2020-09-22] MEDS ORDERED: PT OWN MED DRAWER 7, Y5N ONE ×2 (10:55→20:57)
[2020-09-22] MEDS ORDERED: BISACODYL 5 MG TABLET.DR (FP) PO ONE (17:00)
[2020-09-22 17:40] LABS: HEMATOCRIT 27.6 % (32.4-45.2); LYMPH % 26.2 % (8-40); MCH 26.4 pg (25.7-33.7); MCHC 32.7 g/dl (32.0-36.0); MEAN CELL VOLUME 80.6 fl (80-96); MEAN PLT VOLUME 6.8 fl (7.5-11.1); MONO % 8.3 % (3.8-10.2); NEUT % 61.5 % (42.8-82.8); PLATELET COUNT 299 10^3/uL (134-434); RBC 3.43 M/mm3 (3.60-5.2); RDW 18.4 % (11.6-15.6); WHITE BLOOD COUNT 7.1 K/mm3 (4.0-10.0)
[2020-09-22 18:00] LABS: CALCIUM 7.9 mg/dL (8.5-10.1)
[2020-09-22 18:01] LABS: ALBUMIN 2.9 g/dl (3.4-5.0); BLOOD UREA NITROGEN 4.4 mg/dL (7-18)
[2020-09-22 18:03] LABS: CREATININE 0.6 mg/dL (0.55-1.3)
[2020-09-22 18:06] LABS: BILIRUBIN,TOTAL 0.4 mg/dL (0.2-1); TOT PROT 5.9 g/dl (6.4-8.2)
[2020-09-22] MEDS: MONTELUKAST NA 10 MG TABLET PO SCH (21:15)
[2020-09-23] MEDS: amLODIPine BESYLATE 5 MG TABLET (FP) PO SCH (12:45)
[2020-09-23] MEDS: CEPHALEXIN MONOHYDRATE 500 MG CAPSULE (UD) PO SCH ×2 (12:45→21:32)
[2020-09-23] MEDS: FLUTICASONE/SALMETEROL 100 MCG/50 MCG DISKUS IH SCH ×2 (12:45→21:31)
[2020-09-23] MEDS: POTASSIUM CHLORIDE TABS 20 MEQ TABLET.ER (FP) PO SCH (12:45)
[2020-09-23] MEDS: HEPARIN NA (PORCINE) 5,000 UNITS/ML 1ML VIAL SQ SCH ×2 (12:45→22:39)
[2020-09-23] MEDS ORDERED: PT OWN MED DRAWER 7, Y5N ONE ×2 (13:21→20:57)
[2020-09-23] MEDS: DIVALPROEX SODIUM 500 MG TABLET E.C. PO SCH ×2 (13:26→21:31)
[2020-09-23] MEDS: POLYETHYLENE GLYCOL (HEALTHYLAX) 3350 17 GM PACKET PO SCH (13:27)
[2020-09-23 13:50] LABS: BASO % 1.1 % (0-2.0); EOS % 2.2 % (0-4.5); HEMATOCRIT 28.9 % (32.4-45.2); HEMOGLOBIN 9.7 GM/dL (10.7-15.3); LYMPH % 22.7 % (8-40); MCH 26.8 pg (25.7-33.7); MCHC 33.6 g/dl (32.0-36.0); MEAN CELL VOLUME 79.7 fl (80-96); MEAN PLT VOLUME 6.8 fl (7.5-11.1); MONO % 8.7 % (3.8-10.2); NEUT % 65.3 % (42.8-82.8); PLATELET COUNT 327 10^3/uL (134-434); RBC 3.63 M/mm3 (3.60-5.2); RDW 18.3 % (11.6-15.6)
[2020-09-23 14:13] LABS: CALCIUM 8.5 mg/dL (8.5-10.1)
[2020-09-23 14:14] LABS: ALBUMIN 3.1 g/dl (3.4-5.0)
[2020-09-23 14:17] LABS: CREATININE 0.6 mg/dL (0.55-1.3)
[2020-09-23 14:20] LABS: BILIRUBIN,TOTAL 0.6 mg/dL (0.2-1); TOT PROT 6.1 g/dl (6.4-8.2)
[2020-09-23 14:24] LABS: BLOOD UREA NITROGEN 3.6 mg/dL (7-18)
[2020-09-23] MEDS ORDERED: IRON SUCROSE INJECTION 200 MG in SODIUM CHLORIDE 90 ML IVPB ONE (16:22)
[2020-09-23] MEDS ORDERED: amLODIPine BESYLATE 5 MG TABLET (FP) PO ONE (17:21)
[2020-09-23] MEDS ORDERED: amLODIPine BESYLATE 5 MG TABLET (FP) PO SCH (17:22)
[2020-09-23] MEDS ORDERED: hydrALAZINE HCL 50 MG TABLET (FP) PO SCH (21:18)
[2020-09-23] MEDS: MONTELUKAST NA 10 MG TABLET PO SCH (21:32)
[2020-09-23] MEDS: hydrALAZINE HCL 50 MG TABLET (FP) PO SCH (21:36)
[2020-09-24] MEDS ORDERED: ACETAMINOPHEN 325 MG TABLET (FP) PO PRN (04:01)
[2020-09-24] MEDS: hydrALAZINE HCL 50 MG TABLET (FP) PO SCH ×2 (05:46→15:26)
[2020-09-24] MEDS: HEPARIN NA (PORCINE) 5,000 UNITS/ML 1ML VIAL SQ SCH ×2 (05:51→15:26)
[2020-09-24] MEDS ORDERED: PT OWN MED DRAWER 7, Y5N ONE (10:00)
[2020-09-24] MEDS: DIVALPROEX SODIUM 500 MG TABLET E.C. PO SCH (10:08)
[2020-09-24] MEDS: FLUTICASONE/SALMETEROL 100 MCG/50 MCG DISKUS IH SCH (10:08)
[2020-09-24] MEDS: POLYETHYLENE GLYCOL (HEALTHYLAX) 3350 17 GM PACKET PO SCH (10:08)
[2020-09-24] MEDS: POTASSIUM CHLORIDE TABS 20 MEQ TABLET.ER (FP) PO SCH (10:08)
[2020-09-24] MEDS: CEPHALEXIN MONOHYDRATE 500 MG CAPSULE (UD) PO SCH (10:08)
[2020-09-24] MEDS ORDERED: INSULIN (LEVEMIR) 100 UNITS/ML UNITS SQ SCH (10:15)
[2020-09-24 15:42] VITALS: PULSE 84
[2020-09-24 18:15] VITALS: BP 156/80; TEMP 98
== END 2020-09-24 18:00 | DRG 377 ==
LOC: JER 12:25 → JERBED 19:00 → J4W 09-14 01:23
PROVIDERS: ADMIT Internal Medicine; ATTEND Family Medicine
PROC: 30233N1 Transfusion of Nonautologous Red Blood Cells into Peripheral Vein, Percutaneous Approach (ICD-10-PCS; 2020-09-13)
PROC: 0DJ08ZZ Inspection of Upper Intestinal Tract, Via Natural or Artificial Opening Endoscopic (ICD-10-PCS; 2020-09-16)
PROC: 0DBK8ZX Excision of Ascending Colon, Via Natural or Artificial Opening Endoscopic, Diagnostic (ICD-10-PCS; principal; 2020-09-23 09:45)
DX: K92.2 Gastrointestinal hemorrhage, unspecified (principal); G93.41 Metabolic encephalopathy; D62 Acute posthemorrhagic anemia; Z68.44 Body mass index [BMI] 60.0-69.9, adult; E87.2 Acidosis; N39.0 Urinary tract infection, site not specified; E11.9 Type 2 diabetes mellitus without complications; J44.9 Chronic obstructive pulmonary disease, unspecified; F41.8 Other specified anxiety disorders; R56.9 Unspecified convulsions; E87.6 Hypokalemia; E66.01 Morbid (severe) obesity due to excess calories; I67.1 Cerebral aneurysm, nonruptured; K64.8 Other hemorrhoids; D64.9 Anemia, unspecified; E78.5 Hyperlipidemia, unspecified; K21.9 Gastro-esophageal reflux disease without esophagitis
CPT/HCPCS: 36415; 36430; 36511; 70450-TC; 71045-TC-FY; 80048; 80053; 81003; 82010; 82272; 82550; 82553; 82570; 82607; 82728; 82747; 82803; 82962; 83036; 83516; 83540; 83550; 83605; 83735; 84436; 84439; 84443; 84484; 85014; 85025; 85045; 85610; 86850; 86900; 86901; 86922; 87040; 87077; 87086; 87186; 88305-TC; 93005; 93010; 93306-TC; 94640; 94660; 99285-25; C9803; J0131; J1644; J1756; P9038; P9058; U0003; U0005

== ENCOUNTER 2022-09-20 20:11 | Inpatient (IN) | payer OTHER ==
[2022-09-20 21:08] LABS: VENOUS BASE EXCESS 3.3 mmol/L (-2-2); VENOUS O2 SATURATION 93.2 % (70-80); VENOUS PCO2 44.9 mmHg (38-52); VENOUS PH 7.418 (7.310-7.410)
[2022-09-20 21:10] LABS: BASO % 1.2 % (0-2.0); EOS % 2.1 % (0-4.5); HEMATOCRIT 38.2 % (32.4-45.2); HEMOGLOBIN 12.9 GM/dL (10.7-15.3); LYMPH % 34.6 % (8-40); MCHC 33.8 g/dl (32.0-36.0); MEAN CELL VOLUME 77.1 fl (80-96); MEAN PLT VOLUME 9.2 fl (7.5-11.1); MONO % 9.4 % (3.8-10.2); NEUT % 52.7 % (42.8-82.8); PLATELET COUNT 244 10^3/uL (134-434); RBC 4.95 M/mm3 (3.60-5.2); RDW 16.3 % (11.6-15.6); WHITE BLOOD COUNT 9.6 K/mm3 (4.0-10.0)
[2022-09-20 21:24] LABS: INR 0.97 (0.83-1.09); PROTHROMBIN TIME (PATIENT) 11.3 SEC (9.7-13.0)
[2022-09-20 21:27] LABS: ACTIVATED PTT 30.7 SECONDS (25.2-36.5)
[2022-09-20 21:52] LABS: CHLORIDE 103 mmol/L (98-107); POTASSIUM 3.7 mmol/L (3.5-5.1); SODIUM 139 mmol/L (136-145)
[2022-09-20 21:53] LABS: ALBUMIN 3.1 g/dl (3.4-5.0); ANION GAP 8 MMOL/L (8-16); CALCIUM 8.5 mg/dL (8.5-10.1); CO2 28 mmol/L (21-32)
[2022-09-20 21:56] LABS: BLOOD UREA NITROGEN 24.3 mg/dL (7-18); SGPT/ALT 21 U/L (13-61)
[2022-09-20 21:57] LABS: CREATININE 1.8 mg/dL (0.55-1.3); SGOT/AST 14 U/L (15-37)
[2022-09-20 21:58] LABS: CHOLESTEROL 188 mg/dL (50-200); TOT PROT 6.1 g/dl (6.4-8.2)
[2022-09-20 22:00] LABS: ALK PHOS 108 U/L (45-117); BILIRUBIN,TOTAL 0.4 mg/dL (0.2-1); LDL CHOLESTEROL (ONLY SJRH) 96 mg/dL (5-100)
[2022-09-20 22:01] LABS: HDL CHOLESTEROL 74 mg/dL (40-60)
[2022-09-20 22:04] LABS: GLUCOSE,RANDOM 401 mg/dL (74-106)
[2022-09-20] MEDS ORDERED: FUROSEMIDE 40 MG/4 ML INJECTABLE VIAL IVPUSH ONE ×2 (22:09→22:11)
[2022-09-20 22:25] LABS: EPI CELLS 20 /uL (0-25.1); HYALINE CASTS 0 /uL (0-3.1); PH,URINE 5.5 (5.0-8.0); URINE APPEARANCE CLEAR; URINE BACTERIA >9,000 /uL (0-1359); URINE BILIRUBIN NEGATIVE (NEGATIVE); URINE COLOR YELLOW; URINE GLUCOSE (UA) 3+ (NEGATIVE); URINE KETONE NEGATIVE (NEGATIVE); URINE LEUK ESTERASE 1+ (NEGATIVE); URINE NITRITE NEGATIVE (NEGATIVE); URINE PROTEIN 3+ (NEGATIVE); URINE RBC 49 /uL (0-23.9); URINE UROBILINOGEN 0.2 mg/dL (0.2-1.0); URINE WBC 205 /uL (0-25.8)
[2022-09-20] MEDS ORDERED: FUROSEMIDE 40 MG/4 ML INJECTABLE VIAL ONE (22:36)
[2022-09-20] MEDS ORDERED: CEFTRIAXONE 1 GM in DEXTROSE 5%-WATER - 100 ML IVPB ONE (22:50)
[2022-09-20] MEDS ORDERED: INSULIN (NOVOLOG) ASPART 100 UNITS/ML 10ML VIAL SQ ONE (23:06)
[2022-09-20] MEDS ORDERED: cefTRIAXone SODIUM 1 GM VIAL ONE (23:11)
[2022-09-20] MEDS ORDERED: DOCUSATE SODIUM 100 MG CAPSULE (FP) PO PRN (23:55)
[2022-09-21] MEDS ORDERED: ACETAMINOPHEN 1000 MG/100 ML BAG IVPB ONE (00:29)
[2022-09-21] MEDS ORDERED: ACETAMINOPHEN INJECTION 100 ML IVPB ONE ×2 (01:01→17:34)
[2022-09-21] MEDS: ACETAMINOPHEN 1000 MG/100 ML BAG IVPB PRN ×2 (06:06→17:38)
[2022-09-21] MEDS ORDERED: ALBUTEROL SO4 0.083% IH SOL 2.5 MG/3 ML VIAL.NEB. NEB PRN (07:55)
[2022-09-21] MEDS ORDERED: SENNOSIDES 8.6MG TABLET (FP) PO PRN (07:55)
[2022-09-21] MEDS ORDERED: RIVAROXABAN 20 MG TABLET PO SCH ×2 (10:00→11:07)
[2022-09-21] MEDS ORDERED: CARVEDILOL 3.125 MG TABLET (FP) ONE ×2 (10:52→21:47)
[2022-09-21] MEDS ORDERED: ASPIRIN COATED 81 MG TABLET.EC ONE (10:52)
[2022-09-21] MEDS ORDERED: NIFEdipine E.R 60 MG TABLET PO ONE (10:53)
[2022-09-21] MEDS ORDERED: NIFEdipine E.R. 30 MG TABLET PO ONE (10:53)
[2022-09-21] MEDS: NIFEdipine E.R. 30 MG TABLET PO SCH (11:01)
[2022-09-21] MEDS: ASPIRIN COATED 81 MG TABLET.EC PO SCH (11:01)
[2022-09-21] MEDS: CARVEDILOL 3.125 MG TABLET (FP) PO SCH ×2 (11:01→21:57)
[2022-09-21] MEDS ORDERED: LORazepam 2 MG/ML SDV VIAL IVPUSH STA (12:50)
[2022-09-21] MEDS: FLUTICASONE/SALMETEROL (WIXELA) 100 MCG/50 MCG DISKUS IH SCH ×2 (13:30→21:57)
[2022-09-21] MEDS ORDERED: HEPARIN NA (PORCINE) 5,000 UNITS/ML 1ML VIAL SQ SCH (14:00)
[2022-09-21] MEDS: INSULIN SLIDING SCALE (NOVOLOG) 1 VIAL SQ SCH ×2 (19:04→22:01)
[2022-09-21] MEDS ORDERED: CEFTRIAXONE 1 GM/50 ML BAG ONE (21:46)
[2022-09-21] MEDS ORDERED: ATORVASTATIN CA 40 MG TABLET (FP) ONE (21:47)
[2022-09-21] MEDS ORDERED: MONTELUKAST NA 10 MG TABLET ONE (21:47)
[2022-09-21] MEDS ORDERED: QUEtiapine FUMARATE 25 MG TABLET ONE (21:47)
[2022-09-21] MEDS: CEFTRIAXONE 1 GM in DEXTROSE 5%-WATER - 50 ML IVPB SCH (21:57)
[2022-09-21] MEDS: ATORVASTATIN CA 40 MG TABLET (FP) PO SCH (21:57)
[2022-09-21] MEDS: QUEtiapine FUMARATE 25 MG TABLET PO SCH (21:57)
[2022-09-21] MEDS: MONTELUKAST NA 10 MG TABLET PO SCH (21:57)
[2022-09-21] MEDS ORDERED: ACETAMINOPHEN 325 MG TABLET (FP) ONE (23:53)
[2022-09-21] MEDS: ACETAMINOPHEN 325 MG TABLET (FP) PO PRN (23:54)
[2022-09-22 01:57] VITALS: BMI 57.3
[2022-09-22] MEDS: INSULIN SLIDING SCALE (NOVOLOG) 1 VIAL SQ SCH ×4 (06:31→22:27)
[2022-09-22 10:22] LABS: HEMATOCRIT 36.6 % (32.4-45.2); HEMOGLOBIN 12.3 GM/dL (10.7-15.3); MCH 25.9 pg (25.7-33.7); MCHC 33.5 g/dl (32.0-36.0); MEAN CELL VOLUME 77.2 fl (80-96); MEAN PLT VOLUME 9.2 fl (7.5-11.1); PLATELET COUNT 213 10^3/uL (134-434); RBC 4.75 M/mm3 (3.60-5.2); RDW 16.8 % (11.6-15.6); WHITE BLOOD COUNT 7.7 K/mm3 (4.0-10.0)
[2022-09-22] MEDS: CARVEDILOL 3.125 MG TABLET (FP) PO SCH ×2 (10:32→22:25)
[2022-09-22] MEDS: ASPIRIN COATED 81 MG TABLET.EC PO SCH (10:32)
[2022-09-22] MEDS: NIFEdipine E.R. 30 MG TABLET PO SCH (10:32)
[2022-09-22] MEDS: FLUTICASONE/SALMETEROL (WIXELA) 100 MCG/50 MCG DISKUS IH SCH ×2 (10:33→22:24)
[2022-09-22] MEDS ORDERED: CEFTRIAXONE 1 GM in DEXTROSE 5%-WATER - 50 ML IVPB ONE (12:00)
[2022-09-22] MEDS: ACETAMINOPHEN 325 MG TABLET (FP) PO PRN (14:19)
[2022-09-22] MEDS: RIVAROXABAN 20 MG TABLET PO SCH (19:00)
[2022-09-22] MEDS ORDERED: VALPROATE SODIUM 500 MG/5 ML VIAL IVPB ONE (21:47)
[2022-09-22] MEDS ORDERED: VALPROATE SODIUM INJECTION 1,000 MG in SODIUM CHLORIDE 100 ML IVPB ONE (22:15)
[2022-09-22] MEDS: CEFTRIAXONE 1 GM in DEXTROSE 5%-WATER - 50 ML IVPB SCH (22:25)
[2022-09-22] MEDS: ATORVASTATIN CA 40 MG TABLET (FP) PO SCH (22:25)
[2022-09-22] MEDS: QUEtiapine FUMARATE 25 MG TABLET PO SCH (22:25)
[2022-09-22] MEDS: MONTELUKAST NA 10 MG TABLET PO SCH (22:26)
[2022-09-22] MEDS: TOPIRAMATE 25 MG TABLET PO SCH (22:29)
[2022-09-23] MEDS: RIVAROXABAN 20 MG TABLET PO SCH ×2 (01:15→17:05)
[2022-09-23] MEDS: INSULIN SLIDING SCALE (NOVOLOG) 1 VIAL SQ SCH ×4 (06:44→21:39)
[2022-09-23] MEDS: ASPIRIN COATED 81 MG TABLET.EC PO SCH (09:05)
[2022-09-23] MEDS: TOPIRAMATE 25 MG TABLET PO SCH ×2 (09:11→21:30)
[2022-09-23] MEDS: NIFEdipine E.R. 30 MG TABLET PO SCH (09:11)
[2022-09-23] MEDS: CARVEDILOL 3.125 MG TABLET (FP) PO SCH (09:11)
[2022-09-23] MEDS: DIVALPROEX NA *ER* EXTEND REL 500 MG TABLET.SA (FP) PO SCH ×2 (09:12→21:29)
[2022-09-23] MEDS: FLUTICASONE/SALMETEROL (WIXELA) 100 MCG/50 MCG DISKUS IH SCH ×2 (09:24→21:29)
[2022-09-23] MEDS: ACETAMINOPHEN 325 MG TABLET (FP) PO PRN ×2 (09:30→21:30)
[2022-09-23 12:08] LABS: POTASSIUM 4.2 mmol/L (3.5-5.1)
[2022-09-23 12:12] LABS: CALCIUM 9.6 mg/dL (8.5-10.1)
[2022-09-23 12:13] LABS: BLOOD UREA NITROGEN 21.8 mg/dL (7-18)
[2022-09-23 12:16] LABS: CREATININE 1.2 mg/dL (0.55-1.3)
[2022-09-23] MEDS ORDERED: INSULIN (NOVOLOG) ASPART 100 UNITS/ML 10ML VIAL ONE (12:33)
[2022-09-23] MEDS: INSULIN (LEVEMIR) 100 UNITS/ML UNITS SQ SCH ×2 (12:35→21:38)
[2022-09-23 13:06] LABS: HEMATOCRIT 38.1 % (32.4-45.2); HEMOGLOBIN 12.3 GM/dL (10.7-15.3); MCH 25.4 pg (25.7-33.7); MCHC 32.3 g/dl (32.0-36.0); MEAN CELL VOLUME 78.8 fl (80-96); MEAN PLT VOLUME 9.6 fl (7.5-11.1); PLATELET COUNT 211 10^3/uL (134-434); RBC 4.84 M/mm3 (3.60-5.2); RDW 17.4 % (11.6-15.6); WHITE BLOOD COUNT 7.4 K/mm3 (4.0-10.0)
[2022-09-23] MEDS: ATORVASTATIN CA 40 MG TABLET (FP) PO SCH (21:29)
[2022-09-23] MEDS: CARVEDILOL 6.25 MG TABLET (FP) PO SCH (21:29)
[2022-09-23] MEDS: CEFTRIAXONE 1 GM in DEXTROSE 5%-WATER - 50 ML IVPB SCH (21:30)
[2022-09-23] MEDS: QUEtiapine FUMARATE 25 MG TABLET PO SCH (21:30)
[2022-09-23] MEDS: MONTELUKAST NA 10 MG TABLET PO SCH (21:30)
[2022-09-24] MEDS: INSULIN (LEVEMIR) 100 UNITS/ML UNITS SQ SCH ×2 (06:31→21:46)
[2022-09-24] MEDS: INSULIN SLIDING SCALE (NOVOLOG) 1 VIAL SQ SCH ×4 (06:31→21:46)
[2022-09-24 07:48] LABS: BASO % 1.1 % (0-2.0); EOS % 4.1 % (0-4.5); HEMATOCRIT 36.6 % (32.4-45.2); HEMOGLOBIN 11.9 GM/dL (10.7-15.3); LYMPH % 32.3 % (8-40); MCH 25.7 pg (25.7-33.7); MCHC 32.5 g/dl (32.0-36.0); MEAN CELL VOLUME 79.1 fl (80-96); MEAN PLT VOLUME 10.4 fl (7.5-11.1); MONO % 9.5 % (3.8-10.2); PLATELET COUNT 216 10^3/uL (134-434); RBC 4.62 M/mm3 (3.60-5.2); WHITE BLOOD COUNT 7.5 K/mm3 (4.0-10.0)
[2022-09-24 08:31] LABS: COCAINE, UR NEGATIVE (NEGATIVE); OPIATES, URI NEGATIVE (NEGATIVE); PHENCYCLIDINE,URINE NEGATIVE (NEGATIVE); URINE AMPHETAMINES NEGATIVE (NEGATIVE); URINE BARBITURATES NEGATIVE (NEGATIVE); URINE BENZODIAZEPINES NEGATIVE (NEGATIVE)
[2022-09-24 08:35] LABS: POTASSIUM 4.5 mmol/L (3.5-5.1)
[2022-09-24 08:37] LABS: ALBUMIN 2.7 g/dl (3.4-5.0); BLOOD UREA NITROGEN 22.2 mg/dL (7-18); CALCIUM 8.5 mg/dL (8.5-10.1)
[2022-09-24 08:40] LABS: CREATININE 0.9 mg/dL (0.55-1.3)
[2022-09-24 08:42] LABS: BILIRUBIN,TOTAL 0.2 mg/dL (0.2-1); TOT PROT 5.6 g/dl (6.4-8.2)
[2022-09-24] MEDS: FLUTICASONE/SALMETEROL (WIXELA) 100 MCG/50 MCG DISKUS IH SCH ×2 (09:00→21:55)
[2022-09-24] MEDS: ASPIRIN COATED 81 MG TABLET.EC PO SCH (09:01)
[2022-09-24] MEDS: CARVEDILOL 6.25 MG TABLET (FP) PO SCH ×2 (09:01→21:42)
[2022-09-24] MEDS: TOPIRAMATE 25 MG TABLET PO SCH ×2 (09:01→21:42)
[2022-09-24] MEDS: DIVALPROEX NA *ER* EXTEND REL 500 MG TABLET.SA (FP) PO SCH ×2 (09:01→21:45)
[2022-09-24] MEDS: NIFEdipine E.R. 30 MG TABLET PO SCH (09:01)
[2022-09-24 09:13] LABS: METHADONE, UR NEGATIVE (NEGATIVE)
[2022-09-24] MEDS ORDERED: INSULIN (NOVOLOG) ASPART 100 UNITS/ML 10ML VIAL ONE ×2 (17:04→21:40)
[2022-09-24] MEDS: RIVAROXABAN 20 MG TABLET PO SCH (17:08)
[2022-09-24] MEDS: ATORVASTATIN CA 40 MG TABLET (FP) PO SCH (21:42)
[2022-09-24] MEDS: QUEtiapine FUMARATE 25 MG TABLET PO SCH (21:42)
[2022-09-24] MEDS: MONTELUKAST NA 10 MG TABLET PO SCH (21:42)
[2022-09-24] MEDS: CEFTRIAXONE 1 GM in DEXTROSE 5%-WATER - 50 ML IVPB SCH (21:46)
[2022-09-25] MEDS ORDERED: INSULIN (NOVOLOG) ASPART 100 UNITS/ML 10ML VIAL ONE (06:16)
[2022-09-25] MEDS: INSULIN SLIDING SCALE (NOVOLOG) 1 VIAL SQ SCH ×4 (06:22→21:25)
[2022-09-25] MEDS: INSULIN (LEVEMIR) 100 UNITS/ML UNITS SQ SCH ×2 (06:22→21:24)
[2022-09-25] MEDS: TOPIRAMATE 25 MG TABLET PO SCH ×2 (09:01→21:18)
[2022-09-25] MEDS: DIVALPROEX NA *ER* EXTEND REL 500 MG TABLET.SA (FP) PO SCH ×2 (09:01→21:39)
[2022-09-25] MEDS: CARVEDILOL 6.25 MG TABLET (FP) PO SCH ×2 (09:01→21:18)
[2022-09-25] MEDS: ASPIRIN COATED 81 MG TABLET.EC PO SCH (09:01)
[2022-09-25] MEDS: NIFEdipine E.R. 30 MG TABLET PO SCH (09:01)
[2022-09-25] MEDS: FLUTICASONE/SALMETEROL (WIXELA) 100 MCG/50 MCG DISKUS IH SCH ×2 (09:02→21:18)
[2022-09-25] MEDS: ALBUTEROL SO4 0.083% IH SOL 2.5 MG/3 ML VIAL.NEB. NEB SCH ×2 (14:45→20:05)
[2022-09-25] MEDS: ACETAMINOPHEN 325 MG TABLET (FP) PO PRN (15:23)
[2022-09-25] MEDS: RIVAROXABAN 20 MG TABLET PO SCH (17:43)
[2022-09-25] MEDS: QUEtiapine FUMARATE 25 MG TABLET PO SCH (21:18)
[2022-09-25] MEDS: ATORVASTATIN CA 40 MG TABLET (FP) PO SCH (21:18)
[2022-09-25] MEDS: MONTELUKAST NA 10 MG TABLET PO SCH (21:18)
[2022-09-26] MEDS: ACETAMINOPHEN 325 MG TABLET (FP) PO PRN ×3 (02:35→17:51)
[2022-09-26] MEDS: INSULIN (LEVEMIR) 100 UNITS/ML UNITS SQ SCH ×2 (06:16→22:52)
[2022-09-26] MEDS: INSULIN SLIDING SCALE (NOVOLOG) 1 VIAL SQ SCH ×4 (06:16→22:58)
[2022-09-26] MEDS: ALBUTEROL SO4 0.083% IH SOL 2.5 MG/3 ML VIAL.NEB. NEB SCH ×3 (08:15→21:40)
[2022-09-26] MEDS: DIVALPROEX NA *ER* EXTEND REL 500 MG TABLET.SA (FP) PO SCH ×2 (09:26→21:39)
[2022-09-26] MEDS: ASPIRIN COATED 81 MG TABLET.EC PO SCH (09:26)
[2022-09-26] MEDS: TOPIRAMATE 25 MG TABLET PO SCH ×2 (09:26→21:35)
[2022-09-26] MEDS: NIFEdipine E.R. 30 MG TABLET PO SCH (09:27)
[2022-09-26] MEDS: CARVEDILOL 6.25 MG TABLET (FP) PO SCH ×2 (09:27→21:38)
[2022-09-26] MEDS: FLUTICASONE/SALMETEROL (WIXELA) 100 MCG/50 MCG DISKUS IH SCH (09:29)
[2022-09-26 13:01] LABS: EPI CELLS 30 /uL (0-25.1); HYALINE CASTS 1 /uL (0-3.1); PH,URINE 7.5 (5.0-8.0); URINE APPEARANCE CLEAR; URINE BACTERIA 81 /uL (0-1359); URINE BILIRUBIN NEGATIVE (NEGATIVE); URINE COLOR YELLOW; URINE GLUCOSE (UA) 1+ (NEGATIVE); URINE KETONE NEGATIVE (NEGATIVE); URINE LEUK ESTERASE 1+ (NEGATIVE); URINE NITRITE NEGATIVE (NEGATIVE); URINE PROTEIN 3+ (NEGATIVE); URINE RBC 31 /uL (0-23.9); URINE UROBILINOGEN 0.2 mg/dL (0.2-1.0); URINE WBC 93 /uL (0-25.8)
[2022-09-26] MEDS ORDERED: INSULIN (NOVOLOG) ASPART 100 UNITS/ML 10ML VIAL ONE (17:05)
[2022-09-26] MEDS: RIVAROXABAN 20 MG TABLET PO SCH (17:08)
[2022-09-26] MEDS: ATORVASTATIN CA 40 MG TABLET (FP) PO SCH (21:37)
[2022-09-26] MEDS: MONTELUKAST NA 10 MG TABLET PO SCH (21:37)
[2022-09-26] MEDS: QUEtiapine FUMARATE 25 MG TABLET PO SCH (21:38)
[2022-09-27] MEDS ORDERED: oxyCODONE HCL 5 MG TABLET PO ONE (00:11)
[2022-09-27] MEDS: FLUTICASONE/SALMETEROL (WIXELA) 100 MCG/50 MCG DISKUS IH SCH ×3 (01:35→21:23)
[2022-09-27] MEDS: INSULIN (LEVEMIR) 100 UNITS/ML UNITS SQ SCH ×2 (06:27→21:22)
[2022-09-27] MEDS: INSULIN SLIDING SCALE (NOVOLOG) 1 VIAL SQ SCH ×4 (06:29→21:22)
[2022-09-27 07:37] LABS: POTASSIUM 4.4 mmol/L (3.5-5.1)
[2022-09-27 07:38] LABS: BLOOD UREA NITROGEN 24.6 mg/dL (7-18); CALCIUM 8.1 mg/dL (8.5-10.1)
[2022-09-27] MEDS: ALBUTEROL SO4 0.083% IH SOL 2.5 MG/3 ML VIAL.NEB. NEB SCH ×3 (08:19→20:35)
[2022-09-27] MEDS: TOPIRAMATE 25 MG TABLET PO SCH ×2 (09:50→21:21)
[2022-09-27] MEDS: CARVEDILOL 6.25 MG TABLET (FP) PO SCH ×2 (09:50→21:21)
[2022-09-27] MEDS: NIFEdipine E.R. 30 MG TABLET PO SCH (09:51)
[2022-09-27] MEDS: ASPIRIN COATED 81 MG TABLET.EC PO SCH (09:51)
[2022-09-27] MEDS: DIVALPROEX NA *ER* EXTEND REL 500 MG TABLET.SA (FP) PO SCH ×2 (09:52→21:21)
[2022-09-27] MEDS ORDERED: INSULIN (NOVOLOG) ASPART 100 UNITS/ML 10ML VIAL ONE ×2 (11:46→21:07)
[2022-09-27] MEDS: ACETAMINOPHEN 325 MG TABLET (FP) PO PRN (11:49)
[2022-09-27] MEDS: RIVAROXABAN 20 MG TABLET PO SCH (18:04)
[2022-09-27] MEDS: MONTELUKAST NA 10 MG TABLET PO SCH (21:21)
[2022-09-27] MEDS: ATORVASTATIN CA 40 MG TABLET (FP) PO SCH (21:21)
[2022-09-27] MEDS: QUEtiapine FUMARATE 25 MG TABLET PO SCH (21:21)
[2022-09-28] MEDS ORDERED: INSULIN (NOVOLOG) ASPART 100 UNITS/ML 10ML VIAL ONE (06:21)
[2022-09-28] MEDS: INSULIN (LEVEMIR) 100 UNITS/ML UNITS SQ SCH (06:27)
[2022-09-28] MEDS: INSULIN SLIDING SCALE (NOVOLOG) 1 VIAL SQ SCH (06:27)
[2022-09-28] MEDS: ALBUTEROL SO4 0.083% IH SOL 2.5 MG/3 ML VIAL.NEB. NEB SCH (07:30)
[2022-09-28] MEDS: TOPIRAMATE 25 MG TABLET PO SCH (09:58)
[2022-09-28] MEDS: ASPIRIN COATED 81 MG TABLET.EC PO SCH (09:58)
[2022-09-28] MEDS: NIFEdipine E.R. 30 MG TABLET PO SCH (09:59)
[2022-09-28] MEDS: DIVALPROEX NA *ER* EXTEND REL 500 MG TABLET.SA (FP) PO SCH (09:59)
[2022-09-28] MEDS: CARVEDILOL 6.25 MG TABLET (FP) PO SCH (09:59)
[2022-09-28] MEDS: FLUTICASONE/SALMETEROL (WIXELA) 100 MCG/50 MCG DISKUS IH SCH (10:00)
[2022-09-28 10:08] VITALS: RESP 18; TEMP 98.8
[2022-09-28 11:30] VITALS: BP 154/92; PULSE 69
[2022-09-28 16:08] LABS: ATYPICAL pANCA <1:20 titer (Neg:<1:20); C-ANCA <1:20 titer (Neg:<1:20)
== END 2022-09-28 12:23 | disposition home or self-care (01) | DRG 101 ==
LOC: JER 20:11 → JERBED 23:41 → J4W 09-22 02:16
PROVIDERS: ADMIT Internal Medicine; ATTEND Family Medicine
DX: G40.909 Epilepsy, unspecified, not intractable, without status epilepticus (principal); I24.8 Other forms of acute ischemic heart disease; N17.9 Acute kidney failure, unspecified; N39.0 Urinary tract infection, site not specified; Z68.43 Body mass index [BMI] 50.0-59.9, adult; I13.0 Hypertensive heart and chronic kidney disease with heart failure and stage 1 through stage 4 chronic kidney disease, or unspecified chronic kidney disease; J44.9 Chronic obstructive pulmonary disease, unspecified; E78.5 Hyperlipidemia, unspecified; F41.8 Other specified anxiety disorders; M54.50 Low back pain, unspecified; D64.9 Anemia, unspecified; I45.10 Unspecified right bundle-branch block; B96.1 Klebsiella pneumoniae [K. pneumoniae] as the cause of diseases classified elsewhere; B95.4 Other streptococcus as the cause of diseases classified elsewhere; R47.9 Unspecified speech disturbances; E11.65 Type 2 diabetes mellitus with hyperglycemia; I25.10 Atherosclerotic heart disease of native coronary artery without angina pectoris; E66.01 Morbid (severe) obesity due to excess calories; I25.2 Old myocardial infarction; R80.9 Proteinuria, unspecified; G43.909 Migraine, unspecified, not intractable, without status migrainosus; G47.33 Obstructive sleep apnea (adult) (pediatric); I89.0 Lymphedema, not elsewhere classified; E11.22 Type 2 diabetes mellitus with diabetic chronic kidney disease; N18.9 Chronic kidney disease, unspecified; I50.9 Heart failure, unspecified; Z86.718 Personal history of other venous thrombosis and embolism
CPT/HCPCS: 36415; 70450-TC; 71045-TC-FY; 76775-TC; 80048; 80053; 80061; 80307; 81003; 82550; 82553; 82570; 82803; 82962; 83036; 83516; 83520; 83880; 84300; 84484; 85025; 85027; 85610; 85730; 86038; 86160; 86225; 86256; 86850; 86900; 86901; 87086; 87186; 93005; 93010; 93306-TC; 93970-TC; 94640; 94660; 97116-GP; 97162-GP; 99285-25

== ENCOUNTER 2023-09-16 13:28 | Observation (INO) | payer OTHER ==
[2023-09-16 15:51] LABS: BASO % 0.5 % (0-2.0); EOS % 2.3 % (0-4.5); HEMATOCRIT 32.4 % (32.4-45.2); HEMOGLOBIN 10.6 GM/dL (10.7-15.3); LYMPH % 33.3 % (8-40); MCH 25.5 pg (25.7-33.7); MCHC 32.9 g/dl (32.0-36.0); MEAN CELL VOLUME 77.6 fl (80-96); MONO % 8.4 % (3.8-10.2); NEUT % 55.5 % (42.8-82.8); PLATELET COUNT 214 10^3/uL (134-434); RBC 4.17 M/mm3 (3.60-5.2); RDW 17.2 % (11.6-15.6); WHITE BLOOD COUNT 6.9 K/mm3 (4.0-10.0)
[2023-09-16 16:24] LABS: BLOOD UREA NITROGEN 22.6 mg/dL (7-18); CHLORIDE 112 mmol/L (98-107); CREATININE 1.2 mg/dL (0.55-1.3); GLUCOSE,RANDOM 227 mg/dL (74-106); POTASSIUM 3.7 mmol/L (3.5-5.1); SODIUM 142 mmol/L (136-145)
[2023-09-16 16:25] LABS: ALBUMIN 2.8 g/dl (3.4-5.0); ALK PHOS 110 U/L (45-117); BILIRUBIN,TOTAL 0.4 mg/dL (0.2-1); CALCIUM 8.3 mg/dL (8.5-10.1); CO2 25 mmol/L (21-32); SGOT/AST 7 U/L (15-37); SGPT/ALT 15 U/L (13-61)
[2023-09-16] MEDS ORDERED: CEFTRIAXONE 1 GM/50 ML BAG ONE (16:37)
[2023-09-16] MEDS ORDERED: AZITHROMYCIN 500 MG TABLET ONE (16:37)
[2023-09-16] MEDS: AZITHROMYCIN 250 MG TABLET PO ONE (16:48)
[2023-09-16] MEDS: CEFTRIAXONE 1 GM in DEXTROSE 5%-WATER - 100 ML IVPB ONE (16:48)
[2023-09-16] MEDS ORDERED: ACETAMINOPHEN INJECTION 100 ML IVPB ONE (17:42)
[2023-09-16] MEDS: ACETAMINOPHEN 1000 MG/100 ML BAG IVPB ONE (17:49)
[2023-09-16] MEDS ORDERED: ENOXAPARIN NA (PORCINE) 100 MG/1 ML DISP.SYRIN SQ ONE (18:23)
[2023-09-16] MEDS: ENOXAPARIN NA (PORCINE) 100 MG/1 ML DISP.SYRIN SQ ONE (18:27)
[2023-09-17 05:05] VITALS: BMI 26.4
[2023-09-17] MEDS ORDERED: LABETALOL HCL 5 MG/1 ML (100MG/20 ML VIAL) IVPUSH ONE (05:12)
[2023-09-17] MEDS ORDERED: ALBUTEROL SO4 0.083% IH SOL 2.5 MG/3 ML VIAL.NEB. NEB PRN (05:19)
[2023-09-17] MEDS ORDERED: FLUTICASONE/SALMETEROL (WIXELA) 100 MCG/50 MCG DISKUS IH PRN (05:19)
[2023-09-17] MEDS: LABETALOL HCL 20 MG/4 ML VIAL IVPUSH ONE (05:45)
[2023-09-17 06:49] LABS: ARTERIAL BLD GAS O2 SATURATION 98.7 % (95-98); ARTERIAL BLOOD GAS BASE EXCESS -1.9 mmol/L (-2-2); ARTERIAL BLOOD GAS PO2 142.5 mmHg (80-100)
[2023-09-17 06:50] LABS: VENT MODE CPAP
[2023-09-17] MEDS ORDERED: INSULIN (LEVEMIR) 100 UNITS/ML UNITS SQ SCH (08:00)
[2023-09-17 08:13] LABS: BASO % 1.3 % (0-2.0); EOS % 2.9 % (0-4.5); HEMATOCRIT 35.7 % (32.4-45.2); HEMOGLOBIN 11.5 GM/dL (10.7-15.3); LYMPH % 37.2 % (8-40); MCH 25.7 pg (25.7-33.7); MCHC 32.3 g/dl (32.0-36.0); MEAN CELL VOLUME 79.4 fl (80-96); MEAN PLT VOLUME 9.2 fl (7.5-11.1); MONO % 9.4 % (3.8-10.2); NEUT % 49.2 % (42.8-82.8); PLATELET COUNT 188 10^3/uL (134-434); RDW 16.8 % (11.6-15.6); WHITE BLOOD COUNT 5.4 K/mm3 (4.0-10.0)
[2023-09-17 08:41] LABS: POTASSIUM 3.9 mmol/L (3.5-5.1)
[2023-09-17 08:43] LABS: CALCIUM 8.5 mg/dL (8.5-10.1)
[2023-09-17 08:44] LABS: ALBUMIN 2.8 g/dl (3.4-5.0); BLOOD UREA NITROGEN 20.4 mg/dL (7-18); MAGNESIUM 2.3 mg/dL (1.8-2.4)
[2023-09-17 08:47] LABS: CREATININE 1.3 mg/dL (0.55-1.3); PHOSPHOROUS 3.9 mg/dL (2.5-4.9)
[2023-09-17 08:49] LABS: BILIRUBIN,TOTAL 0.2 mg/dL (0.2-1); TOT PROT 5.8 g/dl (6.4-8.2)
[2023-09-17 08:52] LABS: N-TERMINAL BNP 299.6 pg/ml (5-125)
[2023-09-17] MEDS: hydrALAZINE HCL 25 MG TABLET (FP) PO SCH (09:08)
[2023-09-17] MEDS: amLODIPine BESYLATE 10 MG TABLET (FP) PO SCH (09:08)
[2023-09-17] MEDS: ISOSORBIDE MONONITRATE 30 MG TAB.SR.24H (FP) PO SCH (09:08)
[2023-09-17] MEDS: ASPIRIN COATED 81 MG TABLET.EC PO SCH (09:08)
[2023-09-17] MEDS: PANTOPRAZOLE 40 MG TABLET PO SCH (09:10)
[2023-09-17] MEDS: TOPIRAMATE 100 MG TABLET PO SCH (09:10)
[2023-09-17] MEDS: CARVEDILOL 25 MG TABLET (FP) PO SCH (09:10)
[2023-09-17] MEDS: FUROSEMIDE 20 MG TABLET (FP) PO SCH (09:10)
[2023-09-17] MEDS: SERTRALINE HCL 50 MG TABLET (FP) PO SCH (09:10)
[2023-09-17] MEDS ORDERED: FUROSEMIDE 40 MG/4 ML INJECTABLE VIAL IVPUSH SCH (10:00)
[2023-09-17] MEDS: ACETAMINOPHEN 1000 MG/100 ML BAG IVPB ONE (11:22)
[2023-09-17 15:26] VITALS: BP 169/80; PULSE 67; RESP 19; TEMP 98.2
[2023-09-17] MEDS: RIVAROXABAN 20 MG TABLET PO SCH (17:18)
[2023-09-17] MEDS ORDERED: QUEtiapine FUMARATE 50 MG TABLET PO SCH (22:00)
[2023-09-17] MEDS ORDERED: MONTELUKAST NA 10 MG TABLET PO SCH (22:00)
[2023-09-17] MEDS ORDERED: ATORVASTATIN CA 80 MG TABLET (FP) PO SCH (22:00)
[2023-09-18] MEDS ORDERED: ISOSORBIDE MONONITRATE 30 MG TAB.SR.24H (FP) PO SCH (07:46)
[2023-09-18] MEDS ORDERED: NIFEdipine E.R. 90 MG TABLET PO SCH (10:00)
[2023-09-18] MEDS ORDERED: hydrALAZINE HCL 25 MG TABLET (FP) PO SCH (14:00)
== END 2023-09-17 19:00 | disposition home or self-care (01) ==
LOC: JER 13:28 → JERBED 18:01 → UNDOADMOB 18:01 → INTOOBSV 18:01 → J4W 19:57 → JERBED 19:57 → J4W 09-17 08:55
PROVIDERS: ADMIT Internal Medicine; ATTEND Internal Medicine
PROC: 3E033NZ Introduction of Analgesics, Hypnotics, Sedatives into Peripheral Vein, Percutaneous Approach (ICD-10-PCS; principal; 2023-09-17)
PROC: 3E03329 Introduction of Other Anti-infective into Peripheral Vein, Percutaneous Approach (ICD-10-PCS; 2023-09-17)
PROC: 3E023GC Introduction of Other Therapeutic Substance into Muscle, Percutaneous Approach (ICD-10-PCS; 2023-09-17)
PROC: 3E033GC Introduction of Other Therapeutic Substance into Peripheral Vein, Percutaneous Approach (ICD-10-PCS; 2023-09-17)
DX: R07.89 Other chest pain (principal); E66.01 Morbid (severe) obesity due to excess calories; J44.9 Chronic obstructive pulmonary disease, unspecified; E11.9 Type 2 diabetes mellitus without complications; K21.9 Gastro-esophageal reflux disease without esophagitis; I11.0 Hypertensive heart disease with heart failure; F41.8 Other specified anxiety disorders; R77.8 Other specified abnormalities of plasma proteins; G62.9 Polyneuropathy, unspecified; G89.29 Other chronic pain; Z90.79 Acquired absence of other genital organ(s); I25.10 Atherosclerotic heart disease of native coronary artery without angina pectoris; Z99.81 Dependence on supplemental oxygen; Z86.718 Personal history of other venous thrombosis and embolism; Z87.891 Personal history of nicotine dependence; Z88.8 Allergy status to other drugs, medicaments and biological substances
CPT/HCPCS: 0241U-QW; 36415; 36600; 71045-TC-FY; 71275-TC; 80053; 82803; 82962; 83690; 83735; 83880; 84100; 84484; 85025; 93005; 93010; 93306-TC; 94660; 96365; 96372; 96375; 96376; 99285-25; G0378; J0131